=== PATIENT | male | born 1955 | race Caucasian/White ===

== ENCOUNTER 2021-07-15 16:07 | Emergency (ER) | payer BC ==
[~2021-07-15] VITALS: Ht 172.7 cm; Wt 77.1 kg
--- NOTE | 2021-07-15 17:10 | NUR ---
THE PATIENT IS PRESENTED TO ER FOR LLE (CALF) SWELLING SINCE THIS AM. L HIP REPLACEMENT SX 07/10/21 SEND BY PMD TO R/O DVT. DENIES PAIN AT THIS TIME. IN ROOM AIR AND DENIES SOB. RESPIRATION REGULAR AND UNLABORED. ATTACHED TO THE MONITOR. WARM BLANKET PROVIDED FOR COMFORT. WILL CONTINUE TO MONITOR THE PATIENT.
--- NOTE | 2021-07-15 17:15 | NUR ---
US DVT TECH AT PT'S BEDSIDE
[2021-07-15 17:35] VITALS: BP 133/85
--- NOTE | 2021-07-15 17:35 | NUR ---
The patient is alert and oriented x4. Denies pain. In room air and denies SOB. Respiration regular and unlabored. Patient discharged to home in stable condition. Written and verbal after care instructions given. Patient verbalizes understanding of instruction.
== END 2021-07-15 17:36 | disposition home or self-care (01) ==
LOC: ER 16:32
DX: R22.42 Localized swelling, mass and lump, left lower limb (principal); Z96.642 Presence of left artificial hip joint
CPT/HCPCS: 93971-TC